=== PATIENT | female | born 1975 | race American Indian/Alaskan Native ===

== ENCOUNTER 2017-01-07 15:18 | Emergency (ER) ==
[2017-01-07 15:25] VITALS: BP 164/103; TEMP 98.8; BMI 15.5
--- NOTE | 2017-01-07 15:36 | ED.PDOC ---
General ED Provider: Dr. ANNY MILLIGAN JR Chief Complaint: Tooth Problem Stated Complaint: tooth pain top, back, left side new problem dental issues in the past jaw is throbbing[End]3-4 days 98.8 91 20 99% 164/103 11/11 juan is svisiting her local sister, patient lives in [place] Time Seen by Physician: 15:34 Mode of Arrival: Walk-In Information Source: Patient Nursing and Triage Documentation Reviewed and Agree: No EENT Complaint Exam - Dental/Oral Complaint/Exam Mechanism of Injury: No known trauma Symptoms Are: Still present Timing: Constant Initial Severity: Moderate Current Severity: Moderate Character: Reports: Sharp Aggravating: Reports: Heat, Cold, Chewing Alleviating: Reports: None Associated Signs and Symptoms: Reports: Swelling, Discharge, Foul taste in mouth Related History: Reports: Similar episode, Previous tooth problem Dental/Oral Surgical History: Reports: Third Molar Extractions Tooth Findings: Present: Percussion tenderness, Gross decay Cervical Lymphadenopathy Present: No Teeth Picture: 1 - lone tender tooth Review of Systems - Review Of Systems Constitutional: Reports: No symptoms Eyes: Reports: No symptoms Ears, Nose, Mouth, Throat: Reports: Mouth pain Respiratory: Reports: No symptoms Cardiac: Reports: No symptoms GI: Reports: No symptoms : Reports: No symptoms Musculoskeletal: Reports: No symptoms Skin: Reports: No symptoms Neurological: Reports: No symptoms Endocrine: Reports: No symptoms Hematologic/Lymphatic: Reports: No symptoms All Other Systems: Other Past Medical History - Past Medical History Previously Healthy: Yes Endocrine: Reports: None Cardiovascular: Reports: None Respiratory: Reports: None Hematological: Reports: None Gastrointestinal: Reports: PUD (perforation) Genitourinary: Reports: None Neuro/Psych: Reports: Seizure, Depression, Bipolar Disorder Musculoskeletal: Reports: Back Pain Cancer: Reports: None Last Menstrual Period: 12/29/16 - Surgical History General Surgical History: Reports: Other (perforated ulcer) - Family History Family History: Reports: Unknown - Social History Smoking Status: Current some day smoker Hx Substance Use: No Alcohol Screening: None - Immunizations Tetanus Shot up to Date: Yes Physical Exam - Physical Exam Appearance: Well-appearing, Thin Pain Distress: Moderate Eyes: TAL ENT: Erythema Neck: Supple Respiratory: Airway patent Psychiatric: Affect appropriate Critical Care Note - Critical Care Note Total Time (mins): 0 Course - Course Vital Signs: Temp Pulse Resp BP Pulse Ox 01/07/17 15:18 98.8 F 91 H 20 164/103 H 99 Departure - Departure Time of Disposition: 16:07 Disposition: HOME SELF-CARE Discharge Problem: Toothache Instructions: Toothache (ED) Condition: Good Pt referred to PMD for follow-up: Yes Additional Instructions: antibiotics until gone follow up with dentist as soon as possible doxycycline combined with metronidazole for dental infection with penicillin allergy and clindamycin intolerance recommend Naprosyn for pain may use Ultram if pain not controlled - no refills Prescriptions: Hydrocodone Bit/Acetaminophen [[place] 5-325] 1 - 2 tab PO Q6HR PRN #12 tablet PRN Reason: pain Naproxen [Naprosyn] 500 mg PO Q12HR PRN #30 tablet PRN Reason: PAIN Doxycycline Monohydrate [Monodox] 100 mg PO BID #20 capsule Metronidazole [Flagyl] 500 mg PO TID #21 tablet Allergies/Adverse Reactions: Allergies Penicillins Adverse Reaction (Verified 01/07/17 15:27) prochlorperazine [From Compazine] Adverse Reaction (Verified 01/07/17 15:27) Home Medications: Ambulatory Orders Divalproex Sodium [Depakote] 250 mg PO BID 01/07/17 Doxycycline Monohydrate [Monodox] 100 mg PO BID #20 capsule 01/07/17 Gabapentin 600 mg PO TID 01/07/17 Hydrocodone Bit/Acetaminophen [[place] 5-325] 1 - 2 tab PO Q6HR PRN #12 tablet 11/18 [place] Carbonate 150 mg PO DAILY 01/07/17 Metronidazole [Flagyl] 500 mg PO TID #21 tablet 01/07/17 Naproxen [Naprosyn] 500 mg PO Q12HR PRN #30 tablet 01/07/17
[2017-01-07] MEDS ORDERED: ANTIVERT PO STA (15:37)
[2017-01-07] MEDS: ULTRAM PO STA (16:06)
== END 2017-01-07 16:16 | disposition home or self-care (01) ==
LOC: ED 15:18
DX: K08.89 Other specified disorders of teeth and supporting structures (principal); K02.7 Dental root caries; F17.210 Nicotine dependence, cigarettes, uncomplicated
CPT/HCPCS: 99282

== ENCOUNTER 2022-01-24 16:56 | Observation (INO) ==
[2022-01-24] MEDS ORDERED: TYLENOL PO STA (19:24)
--- NOTE | 2022-01-24 19:33 | ED.PDOC ---
General ED Provider: Dr. CHELSEA AMAYA Chief Complaint: Extremity Pain/Injury Stated Complaint: Patient comes to the ER with complaints of one week history of Bilateral lower extremity swelling and now pain. Time Seen by Provider: 01/24/22 19:25 Mode of Arrival: Walk-In Information Source: Patient Primary Care Provider: ANGEL CORDERO PA-C Nursing and Triage Documentation Reviewed and Agree: Yes Does patient meet sepsis criteria?: No System Inflammatory Response Syndrome: Not Applicable Sepsis Protocol: For patient's 13 years and over: Temp is 96.8 and below OR 101 and greater Pulse >90 BPM Resp >20/minute Acutely Altered Mental Status Are patient's symptoms suggestive of a new infection, such as: -Pneumonia -Skin, Soft Tissue -Endocarditis -UTI -Bone, Joint Infection -Implantable Device -Acute Abdominal Infection -Wound Infection -Meningitis -Blood Stream Catheter Infection -Unknown Review of Systems Review Of Systems Constitutional: Reports No symptoms Ears, Nose, Mouth, Throat: Reports No symptoms Respiratory: Reports No symptoms Cardiac: Reports Edema GI: Reports No symptoms Musculoskeletal: Reports Joint pain and Joint swelling Skin: Reports No symptoms Neurological: Reports Anxiety Endocrine: Reports No symptoms All Other Systems: Reviewed and Negative [facility] Medical History Anxiety and depression Chronic back pain greater than 3 months duration Esophageal foreign body Family History Other Depression Suicide Social History Smokeless tobacco user: chewing tobacco Alcohol intake: never Substance use type: does not use Household members: family Housing: house Lives independently: Yes Current occupational status: unemployed Current gender identity: female Seatbelt use: always Drives intoxicated or rides with intoxicated 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 Water heater temperature set < 120 degrees: Yes Working smoke detector in home: Yes Fire extinguisher in home: Yes Surgical History H/O abdominal surgery History of appendectomy History of cholecystectomy Female Reproductive History Menstrual Hx Hysterectomy: No Hx Tubal Ligation: No Physical Exam Physical Exam Appearance: Reports Thin Ill-appearing: None Pain Distress: Moderate Eyes: Reports TAL ENT: Reports Nose normal Neck: Supple Respiratory: Reports Airway patent and Breath sounds clear Cardiovascular: Reports RRR and Pulses normal GI/: Reports Soft, Nontender and Other (mid scar noted ) Musculoskeletal: Reports Edema Skin: Reports Warm and Dry Neurological: Reports Motor intact, Alert and Oriented Psychiatric: Reports Anxious Critical Care Note Critical Care Note Total Critical Care Time (mins): 30 Course Course Hematology/Chemistry: 01/24/22 19:45 01/24/22 19:45 Orders, Labs, Meds: Lab Review 01/24/22 01/24/22 01/24/22 19:45 19:45 19:45 WBC 3.59 L RBC 2.98 L Hgb 7.5 L Hct 24.6 L MCV 82.6 MCH 25.2 L MCHC 30.5 L RDW Coeff of Kane 18.9 H Plt Count 172 Immature Gran % (Auto) 0.3 Neut % (Auto) 52.8 Lymph % (Auto) 26.5 Stearns % (Auto) 16.2 H Eos % (Auto) 3.6 Baso % (Auto) 0.6 Neut # (Auto) 1.9 L Lymph # (Auto) 1.0 Stearns # (Auto) 0.6 Eos # (Auto) 0.1 Baso # (Auto) 0.0 Immature Gran # (Auto) 0.0 Sodium 140.0 Potassium 2.91 L Chloride 107.2 H Carbon Dioxide 23.7 Anion Gap 12.01 BUN 2.6 L Creatinine 0.46 L Estimated GFR (MDRD) 147.00 BUN/Creatinine Ratio 5.65 Glucose 104.2 Calcium 8.06 L Iron TIBC % Saturation Total Bilirubin 0.27 AST 29.7 ALT 23.2 Alkaline Phosphatase 182.2 H Total Protein 7.10 Albumin 3.37 L Globulin 3.73 Albumin/Globulin Ratio 0.90 D-Dimer 1241.69 H SARS CoV-2 RNA Rapid REAGAN 01/24/22 01/24/22 19:45 21:00 WBC RBC Hgb Hct MCV MCH MCHC RDW Coeff of [place] Plt Count Immature Gran % (Auto) Neut % (Auto) Lymph % (Auto) Stearns % (Auto) Eos % (Auto) Baso % (Auto) Neut # (Auto) Lymph # (Auto) Stearns # (Auto) Eos # (Auto) Baso # (Auto) Immature Gran # (Auto) Sodium Potassium Chloride Carbon Dioxide Anion Gap BUN Creatinine Estimated GFR (MDRD) BUN/Creatinine Ratio Glucose Calcium Iron 26.0 L TIBC 419 % Saturation 6 Total Bilirubin AST ALT Alkaline Phosphatase Total Protein Albumin Globulin Albumin/Globulin Ratio D-Dimer SARS CoV-2 RNA Rapid REAGAN Negative Orders Category Date Time Status PLACE PATIENT OBSERVATION .TO MEDSURG (MONITORED BED ADMISSION 01/24/22 22:15 Active ) INTAKE & OUTPUT Q8HR CARE 01/24/22 22:15 Active TELEMETRY MONITORING TELE CARE 01/24/22 22:15 Active VITAL SIGNS Q4HR CARE 01/24/22 22:16 Active VTE PREVENTION .LISA On AM/Off PM CARE 01/24/22 22:15 Active REGULAR DIET DIETARY 01/24/22 Breakfast Ordered CBC W/ AUTO DIFF DAILY@0600 LAB 01/25/22 06:00 Ordered CBC W/ AUTO DIFF DAILY@0600 LAB 01/26/22 06:00 Ordered CBC W/ AUTO DIFF Stat LAB 01/24/22 19:45 Completed CMP [COMPREHENSIVE METABOLIC PANEL] Stat LAB 01/24/22 19:45 Completed COMPREHENSIVE METABOLIC PANEL DAILY@0600 LAB 01/25/22 06:00 Ordered COMPREHENSIVE METABOLIC PANEL DAILY@0600 LAB 01/26/22 06:00 Ordered D-DIMER Stat LAB 01/24/22 19:45 Completed FERRITIN Stat LAB 01/24/22 19:45 Received IRON AND TIBC Stat LAB 01/24/22 19:45 Completed SARS COV-2 RNA RAPID REAGAN Stat LAB 01/24/22 21:00 Completed Acetaminophen [Tylenol] MEDS 01/24/22 19:24 Discontinued 1,000 mg PO ONCE STA Acetaminophen [Tylenol] MEDS 01/24/22 22:15 Active 650 mg PO Q4H PRN Butorphanol Tartrate [Stadol] MEDS 01/24/22 22:11 Discontinued 1 mg IVP ONCE ONE Furosemide [Lasix] MEDS 01/24/22 22:30 Active 20 mg IVP QDAC Metoclopramide HCl [Reglan] MEDS 01/24/22 22:30 Active 5 mg IVP Q6H Morphine Sulfate [Morphine 2 mg/ml Syringe] MEDS 01/24/22 22:19 Active 2 mg IVP Q6H PRN Nicotine 21 mg [Nicoderm 21 mg] MEDS 01/24/22 23:00 Active 1 patch TD DAILY Potassium Chloride [Potassium Chl 10% Oral Chanell] MEDS 01/24/22 20:26 Discontinued 40 meq PO ONCE STA Potassium Chloride [Potassium Chl 10% Oral Chanell] MEDS 01/24/22 22:32 Discontinued 40 meq PO ONCE STA Potassium Chloride in 0.9%NaCl [Sodium Chloride 0.9%- MEDS 01/24/22 22:30 Active KCl 20 Meq] 1,000 ml IV 70 mls/hr RESUSCITATION STATUS Routine OTHERS 01/24/22 22:15 Ordered U/S VENOUS SCAN INES LEGS Routine RADS 01/25/22 08:00 Ordered Medications Generic Name Dose Route Start Last Admin Trade Name Chapin PRN Reason Stop Dose Admin Acetaminophen 650 mg 01/24/22 22:15 Acetaminophen 325 Mg Tablet PO Q4H PRN Fever and Mild Pain Furosemide 20 mg 01/24/22 22:30 Furosemide Inj 20 Mg/2 Ml Vial IVP QDAC EFREN Potassium Chloride/Sodium Chloride 1,000 mls @ 70 mls/hr 01/24/22 22:30 01/24/22 22:29 Sodium Chloride 0.9%-Kcl 20 Meq IV 70 mls/hr .[id number] EFREN Administration Metoclopramide HCl 5 mg 01/24/22 22:30 Metoclopramide Hcl 10 Mg/2 Ml IVP Q6H EFREN Morphine Sulfate 2 mg 01/24/22 22:19 Morphine Sulfate 2 Mg/Ml Syringe IVP Q6H PRN severe pain Nicotine 1 patch 01/24/22 23:00 Nicotine 21 Mg Patch.Td24 TD DAILY EFREN Discontinued Medications Generic Name Dose Route Start Last Admin Trade Name Chapin PRN Reason Stop Dose Admin Acetaminophen 1,000 mg 01/24/22 19:24 01/24/22 19:30 Acetaminophen 500 Mg Tablet PO 01/24/22 19:25 1,000 mg ONCE STA Administration Butorphanol Tartrate 1 mg 01/24/22 22:11 01/24/22 22:29 Butorphanol Tartrate 2 Mg/Ml Vial IVP 01/24/22 22:12 1 mg ONCE ONE Administration Potassium Chloride 40 meq 01/24/22 20:26 01/24/22 20:35 Potassium Chloride 40 Meq/30 Ml Cup PO 01/24/22 20:27 40 meq ONCE STA Administration Potassium Chloride 40 meq 01/24/22 22:32 Potassium Chloride 40 Meq/30 Ml Cup PO 01/24/22 22:33 ONCE STA Vital Signs: Temp Pulse Resp BP Pulse Ox 01/24/22 20:16 103 H 20 165/107 H 99 01/24/22 16:57 98.9 F 112 H 16 183/102 H 98 Discharge Plan Discharge Patient Disposition: PLACED OBSERVATION Discharge Problem: Hypokalemia, Anemia, Bilateral edema of lower extremity Did you review [place] [employer] TELEVISION TECHNICAL DIRECTOR?: Not Applicable ED Provider: LUCIA MILLER Condition: Stable Physician Progress Note: []
[2022-01-24 19:53] LABS: BASOPHILS % (AUTO) 0.6 % (0.0-3.0); EOSINOPHILS # (AUTO) 0.1 K/ul (0.0-0.7); EOSINOPHILS % (AUTO) 3.6 % (0.0-7.0); HEMATOCRIT 24.6 % (37.0-47.0); HEMOGLOBIN 7.5 g/dl (12.0-16.0); IMMATURE GRANULOCYTE % (AUTO) 0.3 % (0.0-5.0); LYMPHOCYTES % (AUTO) 26.5 (10.0-50.0); MEAN CORPUSCULAR HEMOGLOBIN 25.2 pg (27.0-31.0); MEAN CORPUSCULAR HGB CONC 30.5 (31.8-35.4); MEAN CORPUSCULAR VOLUME 82.6 fl (81.0-99.0); MONOCYTES # (AUTO) 0.6 K/uL (0.4-2.0); MONOCYTES % (AUTO) 16.2 (0-10); NEUTROPHILS # (AUTO) 1.9 K/ul (2.0-6.9); NEUTROPHILS % (AUTO) 52.8 % (42.2-75.2); PLATELET COUNT 172 10^3/uL (140-440); RDW COEFFICIENT OF VARIATION 18.9 % (11.6-14.8); RED BLOOD COUNT 2.98 10^6/ul (4.20-5.40); WHITE BLOOD COUNT 3.59 K/ul (4.6-10.2)
[2022-01-24 20:04] LABS: ALANINE AMINOTRANSFERASE 23.2 U/L (0-35); ALBUMIN 3.37 g/dL (3.5-5.0); ALKALINE PHOSPHATASE 182.2 U/L (38-126); ASPARTATE AMINO TRANSFERASE 29.7 U/L (14-36); BILIRUBIN,TOTAL 0.27 mg/dL (0.2-1.3); BLOOD UREA NITROGEN 2.6 mg/dL (7-17); CALCIUM 8.06 mg/dL (8.4-10.2); CARBON DIOXIDE 23.7 mmol/L (22-30.0); CHLORIDE 107.2 mmol/L (98-107); CREATININE 0.46 mg/dL (0.60-1.30); GLUCOSE 104.2 mg/dL (74-106); POTASSIUM 2.91 mmol/L (3.5-5.1); TOTAL PROTEIN 7.1 g/dL (6.3-8.2)
[2022-01-24] MEDS ORDERED: K-DUR PO ONE (20:11)
[2022-01-24] MEDS ORDERED: POTASSIUM CHL 10% ORAL SOL PO STA ×2 (20:26→22:32)
[2022-01-24] MEDS ORDERED: STADOL IVP ONE (22:11)
[2022-01-24] MEDS ORDERED: LASIX IVP SCH (22:30)
[2022-01-24] MEDS ORDERED: SODIUM CHLORIDE 0.9%-KCL 20 MEQ 1,000 ML IV SCH (22:30)
[2022-01-24] MEDS: NICODERM 21 MG TD SCH (23:37)
[2022-01-24] MEDS: MORPHINE 2 MG/ML SYRINGE IVP PRN (23:48)
[2022-01-25] MEDS ORDERED: NON-FORMULARY MEDICATION (Gabapentin 400 mg capsule) PO SCH (00:15)
[2022-01-25] MEDS ORDERED: NEURONTIN PO SCH (00:30)
[2022-01-25] MEDS: TRILEPTAL PO SCH ×3 (00:42→20:39)
[2022-01-25] MEDS: BUSPAR PO SCH ×4 (00:42→20:39)
[2022-01-25] MEDS: COZAAR PO SCH ×2 (00:43→09:23)
[2022-01-25] MEDS: EFFEXOR XR PO SCH ×2 (00:48→09:22)
[2022-01-25] MEDS: ADVAIR 250-50 DISKUS IH SCH ×3 (00:54→20:40)
[2022-01-25] MEDS: DESYREL PO SCH ×2 (00:55→20:40)
[2022-01-25 00:58] VITALS: BMI 19.5
[2022-01-25] MEDS ORDERED: NEURONTIN PO ONE (01:41)
[2022-01-25] MEDS: REGLAN IVP SCH ×5 (02:09→21:32)
[2022-01-25 05:10] LABS: BASOPHILS % (AUTO) 0.3 % (0.0-3.0); EOSINOPHILS # (AUTO) 0.2 K/ul (0.0-0.7); EOSINOPHILS % (AUTO) 5.6 % (0.0-7.0); HEMOGLOBIN 7.5 g/dl (12.0-16.0); IMMATURE GRANULOCYTE % (AUTO) 0.3 % (0.0-5.0); LYMPHOCYTES % (AUTO) 35.5 (10.0-50.0); MEAN CORPUSCULAR HEMOGLOBIN 25.3 pg (27.0-31.0); MEAN CORPUSCULAR VOLUME 84.2 fl (81.0-99.0); MONOCYTES # (AUTO) 0.6 K/uL (0.4-2.0); MONOCYTES % (AUTO) 19.9 (0-10); NEUTROPHILS # (AUTO) 1.1 K/ul (2.0-6.9); NEUTROPHILS % (AUTO) 38.4 % (42.2-75.2); PLATELET COUNT 182 10^3/uL (140-440); RDW COEFFICIENT OF VARIATION 19.2 % (11.6-14.8); RED BLOOD COUNT 2.97 10^6/ul (4.20-5.40); WHITE BLOOD COUNT 2.87 K/ul (4.6-10.2)
[2022-01-25 05:22] LABS: ALANINE AMINOTRANSFERASE 20.4 U/L (0-35); ALBUMIN 3.01 g/dL (3.5-5.0); ALKALINE PHOSPHATASE 170.8 U/L (38-126); ASPARTATE AMINO TRANSFERASE 20.1 U/L (14-36); BILIRUBIN,TOTAL 0.28 mg/dL (0.2-1.3); BLOOD UREA NITROGEN 3.8 mg/dL (7-17); CALCIUM 7.78 mg/dL (8.4-10.2); CARBON DIOXIDE 25.3 mmol/L (22-30.0); CHLORIDE 112.1 mmol/L (98-107); CREATININE 0.42 mg/dL (0.60-1.30); GLUCOSE 111.3 mg/dL (74-106); POTASSIUM 4.03 mmol/L (3.5-5.1); SODIUM 141.9 mmol/L (134.5-145); TOTAL PROTEIN 6.61 g/dL (6.3-8.2)
[2022-01-25] MEDS: SYNTHROID PO SCH (05:43)
[2022-01-25] MEDS: PROTONIX PO SCH ×2 (05:43→17:09)
[2022-01-25] MEDS: MORPHINE 2 MG/ML SYRINGE IVP PRN (05:48)
[2022-01-25] MEDS ORDERED: LASIX IVP SCH (06:30)
[2022-01-25] MEDS: TYLENOL PO PRN ×2 (07:59→12:39)
[2022-01-25] MEDS ORDERED: NORCO 5-325 PO PRN (08:35)
[2022-01-25] MEDS: NICODERM 21 MG TD SCH (09:19)
[2022-01-25] MEDS: NEURONTIN PO SCH ×8 (09:22→20:40)
--- NOTE | 2022-01-25 09:23 | PCM.PROG ---
Date Seen by Provider: 01/25/22 Time Seen by Provider: 08:15 Subjective: Patient complains of bilateral lower extremity swelling and pain. She reports having this for one week. No other complaints. Objective: Vitals: T=98.0 F, P=111, R=20, QM=608/89, SPO2=99 Patient alert and very talkative. Seems to be in good spirits. Has insight into swallowing objects;"I'm never going to swallow anything again." Patient recently had a laparotomy for this reason. HEENT: [] Neck: [] Lungs: [] Clear and BS equal. CVS: [] RRR. No gallop. Abdomen: [] Extremities: [] Pitting edema both legs to the lower thighs. Nontender. No erythema. Neurological: [] Skin: [] Lab/Tests/Diagnostic Imaging: [] (1) Bilateral edema of lower extremity: Status: Acute Code(s): R60.0 - Localized edema SNOMED Code(s): 407549187 Assessment: Bilateral lower extremity edema persists. Patient already receiving lasix;may need this increased. (2) Anemia: Status: Acute Code(s): D64.9 - Anemia, unspecified SNOMED Code(s): 952136813 Assessment: Patient iron deficient. Hgb 7.5 and Fe 26 (3) Hypokalemia: Status: Acute Code(s): E87.6 - Hypokalemia SNOMED Code(s): 68987049 Assessment: Potassium 4.0 today (4) Bilateral lower extremity pain: Status: Acute Code(s): M79.604 - Pain in right leg; M79.605 - Pain in left leg SNOMED Code(s): 51042746 Assessment: Pain most likely related to edema. Patient to have bilateral lower extremity doppler study today. Will also check an echocardiogram and ask Dr Ramirez to see her. Plan: DC morphine and add norco 5/325. Dr Ramirez to see for cardiac evaluation;patient with bilateral lower extremity swelling. Echocardiogram today as well as bilateral lower extremity doppler to rule out DVT; D dimer was elevated on admission. DC telemetry and hold further potassium for now. Add iron supplement.
[2022-01-25] MEDS ORDERED: CATAPRES PO STA (11:04)
[2022-01-25] MEDS ORDERED: LASIX IVP ONE (11:04)
[2022-01-25] MEDS: FERROUS SULFATE PO SCH ×2 (11:51→17:09)
[2022-01-25] MEDS: NORCO 5-325 PO PRN ×3 (13:12→21:33)
--- NOTE | 2022-01-25 14:39 | US ---
EXAM: Bilateral lower extremity venous Doppler 01/25/2022 HISTORY: Lower extremity been COMPARISON: None FINDINGS: Duplex ultrasound including chavez scale, color and spectral Doppler has been performed. Fl ow, compression and augmentation is present within the right and left common femoral, greater sapheno us, profunda femoral, femoral, popliteal and trifurcation veins. IMPRESSION: No evidence of right or left lower extremity deep vein thrombosis.
[2022-01-26] MEDS: TYLENOL PO PRN ×2 (04:33→16:06)
[2022-01-26] MEDS: REGLAN IVP SCH ×4 (04:33→22:46)
[2022-01-26] MEDS: NORCO 5-325 PO PRN ×5 (04:41→23:00)
[2022-01-26 05:19] LABS: BASOPHILS % (AUTO) 0.6 % (0.0-3.0); EOSINOPHILS # (AUTO) 0.2 K/ul (0.0-0.7); HEMATOCRIT 26.3 % (37.0-47.0); HEMOGLOBIN 7.9 g/dl (12.0-16.0); IMMATURE GRANULOCYTE % (AUTO) 0.3 % (0.0-5.0); LYMPHOCYTES # (AUTO) 1.3 K/uL (0.60-3.4); LYMPHOCYTES % (AUTO) 38.7 (10.0-50.0); MEAN CORPUSCULAR HEMOGLOBIN 24.8 pg (27.0-31.0); MEAN CORPUSCULAR VOLUME 82.7 fl (81.0-99.0); MONOCYTES # (AUTO) 0.6 K/uL (0.4-2.0); MONOCYTES % (AUTO) 16.4 (0-10); NEUTROPHILS # (AUTO) 1.3 K/ul (2.0-6.9); PLATELET COUNT 190 10^3/uL (140-440); RDW COEFFICIENT OF VARIATION 18.9 % (11.6-14.8); RED BLOOD COUNT 3.18 10^6/ul (4.20-5.40); WHITE BLOOD COUNT 3.41 K/ul (4.6-10.2)
[2022-01-26 05:41] LABS: ALBUMIN 3.3 g/dL (3.5-5.0); ALKALINE PHOSPHATASE 173.2 U/L (38-126); ASPARTATE AMINO TRANSFERASE 21.5 U/L (14-36); BILIRUBIN,TOTAL 0.29 mg/dL (0.2-1.3); CALCIUM 7.24 mg/dL (8.4-10.2); CARBON DIOXIDE 26.9 mmol/L (22-30.0); CHLORIDE 98.6 mmol/L (98-107); CREATININE 0.43 mg/dL (0.60-1.30); GLUCOSE 106.6 mg/dL (74-106); POTASSIUM 3.78 mmol/L (3.5-5.1); SODIUM 131.4 mmol/L (134.5-145); TOTAL PROTEIN 7.03 g/dL (6.3-8.2)
[2022-01-26] MEDS: FERROUS SULFATE PO SCH ×3 (05:43→16:12)
[2022-01-26] MEDS: SYNTHROID PO SCH ×2 (05:44→08:56)
[2022-01-26] MEDS: LASIX IVP SCH (05:44)
[2022-01-26] MEDS: PROTONIX PO SCH ×2 (05:44→16:06)
[2022-01-26] MEDS: TRILEPTAL PO SCH ×2 (08:58→22:03)
[2022-01-26] MEDS: BUSPAR PO SCH ×3 (08:58→20:54)
[2022-01-26] MEDS: NEURONTIN PO SCH ×8 (08:58→22:03)
[2022-01-26] MEDS: EFFEXOR XR PO SCH (08:58)
[2022-01-26] MEDS: COZAAR PO SCH (08:58)
[2022-01-26] MEDS: NICODERM 21 MG TD SCH (08:58)
[2022-01-26] MEDS: ADVAIR 250-50 DISKUS IH SCH ×2 (09:04→20:55)
[2022-01-26] MEDS ORDERED: PHENERGAN TAB PO ONE (13:12)
--- NOTE | 2022-01-26 13:17 | ECHO2D ---
Date of Exam: 01/25/2022 Ordering Physician: HOSPITALIST/ [facility] Room #: 110 Reason for Echo: LEG SWELLING, SOB M-Mode Normal Adult Results LV Dimensions Normal Adult Results AoV Opening excursions >1.6 >1.6 LVEDD-base- 3.5-5.8 3.8 Ao root dimensions 2.0-3.7 3.3 LVESD-base- 3.1-4.6 L. Atrium dimensions 1.9-3.8 3.9 Post. Wall thickness 0.8-1.1 1.1 IV septum (thickness) 0.7-1.2 1.1 Post. Wall excursion 0.72-1.3 NORMAL Septal motion 0.8 Systolic motion R. Ventricular cavity 1.5-2.0 4.0 LVEF 60% 50-55% Paradoxical septal wall motion NORMAL 2-D : ENLARGED RIGHT VENTRICLE CAVITY--HYPOCINETIC SEPTUM, MITRAL VALVE PROLAPSE NOTED, LEFT PARASTERNAL LONG AXIS AND APICAL FOUR CHAMBER VIEW--NORMAL VALVES--NO EFFUSION, NO THROMBUS M-MODE: MV: NORMAL AV: NORMAL TV: NORMAL PV: CHAMBER SIZE: ENLARGED RIGHT VENTRICLE CAVITY WALL MOTION: HYPOKINETIC SEPTAL WALL PERICARDIUM: NORMAL INTERPRETATION: 1. HYPOKINETIC SEPTAL WALL --EJECTION FRACTION 50 TO 55% 2. ENLARGED RIGHT VENTRICLE CAVITY 3. LEFT VENTRICLE SIZE--NORMAL 4. MITRAL VALVE PROLAPSE LATE SYSTOLIC MTDD
--- NOTE | 2022-01-26 17:01 | PCM.PROG ---
Date Seen by Provider: 01/26/22 Time Seen by Provider: 16:57 Subjective: pt still nauseated, better w/ phenergan, anemia stable since admission, no emesis today, improved leg edema, hx recent abdominal surgery for foreign body Objective: Vitals: T=97.1 F, P=90, R=14, SA=838/95, SPO2=99 HEENT: []conjunctiva clear Neck: []supple Lungs: [] no respiratory distress CVS: []RRR Abdomen: []nondistended Extremities: []trace edema Neurological: []alert Skin: []pink Lab/Tests/Diagnostic Imaging: [] heart echo showed enlarged RV, MVP and LVEF 55%, Hb 7.9, K+3.7 (1) Bilateral edema of lower extremity: Status: Acute Code(s): R60.0 - Localized edema SNOMED Code(s): 459282079 (2) Anemia: Status: Acute Code(s): D64.9 - Anemia, unspecified SNOMED Code(s): 271618300 (3) Hypokalemia: Status: Acute Code(s): E87.6 - Hypokalemia SNOMED Code(s): 97335293 (4) Bilateral lower extremity pain: Status: Acute Code(s): M79.604 - Pain in right leg; M79.605 - Pain in left leg SNOMED Code(s): 25330737 Plan: pt hx of pica, obtain kub discharge home in am care to Dr Leslie at 19:00
--- NOTE | 2022-01-26 20:25 | DI ---
EXAM: Frontal view of the abdomen. HISTORY: Abdominal pain. COMPARISON: Radiographs 11/24/2021. FINDINGS: Surgical suture line in the left upper quadrant. Bowel does not appear obstructed. Moderate colonic s tool burden. Levoconvex lumbar scoliosis. Multilevel spondylosis. No acute osseous finding. IMPRESSION: No acute abnormality.
[2022-01-26] MEDS: DESYREL PO SCH (22:02)
[2022-01-27] MEDS: REGLAN IVP SCH (04:59)
[2022-01-27 05:26] VITALS: BP 136/80; TEMP 97.5
[2022-01-27 05:42] LABS: BASOPHILS % (AUTO) 0.8 % (0.0-3.0); EOSINOPHILS # (AUTO) 0.2 K/ul (0.0-0.7); EOSINOPHILS % (AUTO) 5.1 % (0.0-7.0); HEMATOCRIT 26.7 % (37.0-47.0); HEMOGLOBIN 8.2 g/dl (12.0-16.0); IMMATURE GRANULOCYTE % (AUTO) 0.3 % (0.0-5.0); LYMPHOCYTES # (AUTO) 1.3 K/uL (0.60-3.4); LYMPHOCYTES % (AUTO) 37.3 (10.0-50.0); MEAN CORPUSCULAR HEMOGLOBIN 24.6 pg (27.0-31.0); MEAN CORPUSCULAR HGB CONC 30.7 (31.8-35.4); MEAN CORPUSCULAR VOLUME 80.2 fl (81.0-99.0); MONOCYTES # (AUTO) 0.5 K/uL (0.4-2.0); MONOCYTES % (AUTO) 14.1 (0-10); NEUTROPHILS # (AUTO) 1.5 K/ul (2.0-6.9); NEUTROPHILS % (AUTO) 42.4 % (42.2-75.2); PLATELET COUNT 190 10^3/uL (140-440); RDW COEFFICIENT OF VARIATION 18.2 % (11.6-14.8); RED BLOOD COUNT 3.33 10^6/ul (4.20-5.40); WHITE BLOOD COUNT 3.54 K/ul (4.6-10.2)
[2022-01-27] MEDS: PROTONIX PO SCH (05:43)
[2022-01-27] MEDS: LASIX IVP SCH (05:43)
[2022-01-27] MEDS: FERROUS SULFATE PO SCH (05:43)
[2022-01-27] MEDS: NORCO 5-325 PO PRN (05:51)
[2022-01-27 05:52] LABS: ALANINE AMINOTRANSFERASE 16.6 U/L (0-35); ALBUMIN 3.26 g/dL (3.5-5.0); ALKALINE PHOSPHATASE 176.4 U/L (38-126); ASPARTATE AMINO TRANSFERASE 26.9 U/L (14-36); BILIRUBIN,TOTAL 0.37 mg/dL (0.2-1.3); CALCIUM 8.04 mg/dL (8.4-10.2); CARBON DIOXIDE 24.1 mmol/L (22-30.0); CREATININE 0.43 mg/dL (0.60-1.30); GLUCOSE 98.3 mg/dL (74-106); POTASSIUM 4.27 mmol/L (3.5-5.1); SODIUM 127.7 mmol/L (134.5-145); TOTAL PROTEIN 7.07 g/dL (6.3-8.2)
--- NOTE | 2022-01-27 09:47 | PCM.PROG ---
Date Seen by Provider: 01/27/22 Time Seen by Provider: 08:45 Subjective: Patient has no complaints. Peripheral edema has resolved. Minimal leg discomfort. Objective: Vitals: T=97.5 F, P=89, R=19, GM=208/80, JFU0=106 Patient alert and in NAD. She is in good spirits and asking to go home. HEENT: [] Neck: [] Lungs: [] Clear. BS equal. CVS: []RRR. No peripheral edema. Abdomen: [] Extremities: [] Neurological: [] Skin: [] Lab/Tests/Diagnostic Imaging: [] (1) Bilateral edema of lower extremity: Status: Acute Code(s): R60.0 - Localized edema SNOMED Code(s): 191269880 Assessment: resolved;echocardiogram with EF of 50-55% and no evidence of DVT on venous doppler exam (2) Anemia: Status: Acute Code(s): D64.9 - Anemia, unspecified SNOMED Code(s): 112474181 Assessment: Hgb stable (3) Hypokalemia: Status: Acute Code(s): E87.6 - Hypokalemia SNOMED Code(s): 51769294 Assessment: Potassium repleted (4) Bilateral lower extremity pain: Status: Acute Code(s): M79.604 - Pain in right leg; M79.605 - Pain in left leg SNOMED Code(s): 24146677 Assessment: Pain resolved with improvement of edema. Plan: Patient will be discharged to home.
--- NOTE | 2022-01-27 09:50 | PCM.DC ---
Final Diagnosis: bilateral lower extremity edema bilateral lower extremity pain hypokalemia anemia Physical Exam Appearance: Well-appearing, No pain distress, Well-nourished and Other (Patient in good spirits and asking to go home. She is ambulating without difficulty.) Ill-appearing: None Pain Distress: None Eyes: Not Examined Neck: Not Examined Respiratory: Airway patent, Breath sounds clear and Breath sounds equal Cardiovascular: RRR, No rub and No murmur GI/: Soft, Nontender, No masses and Bowel sounds normal Musculoskeletal: Normal strength, ROM intact and No edema Skin: Warm, Dry and Normal color Neurological: Motor intact, Alert and Oriented Psychiatric: Affect appropriate and Mood appropriate (1) Bilateral edema of lower extremity: Status: Acute Code(s): R60.0 - Localized edema SNOMED Code(s): 674624913 (2) Anemia: Status: Acute Code(s): D64.9 - Anemia, unspecified SNOMED Code(s): 165132817 (3) Hypokalemia: Status: Acute Code(s): E87.6 - Hypokalemia SNOMED Code(s): 83208693 (4) Bilateral lower extremity pain: Status: Acute Code(s): M79.604 - Pain in right leg; M79.605 - Pain in left leg SNOMED Code(s): 24912273 Reason for Hospitalization: Patient admitted with bilateral lower extremity edema and pain. She also had a potassium of 2.9 Prognosis/Condition at Discharge: Condition at discharge was good. Medications at Discharge: Patient discharged on the same medications that she was taking when admitted. Lab/Diagnostics: Echocardiogram with EF of 50-55%. Venous doppler lower extremities with no DVT. Follow-ups: Follow up with primary care provider within one week. Discharge Disposition: Home Hospital Course: Patient received lasix IVP for her edema and it resolved. Her leg pain improved as the peripheral edema resolved. Low potassium was repleted. Plan: Patient discharged to home.
--- NOTE | 2022-01-27 14:23 | CONS ---
DATE OF SERVICE: 01/25/22 SUBJECTIVE: She was admitted on 01/24/[address] Leslie did ask for consultation for me to see her on 01/25/22. I declined to see the patient on consultation because of the patient being noncompliant on all aspects of medical care. I did echo on her which was ordered. I informed the nurse in charge of the patient, TIMOTHY Costello and also I called Dr. Kaiser informed that I am not going to be seeing the patient on consult. Echo report was given to Dr. Kaiser through cardiopulmonary department. TRACY
[2022-01-28] MEDS ORDERED: NEURONTIN PO SCH ×2 (09:00)
[2022-01-31] MEDS ORDERED: NEURONTIN PO SCH ×2 (09:00)
== END 2022-01-27 09:36 | disposition home or self-care (01) ==
LOC: MEDSURG A 16:56 → ED 16:56 → MEDSURG A 23:25
PROVIDERS: ADMIT Internal Medicine Geriatric Medicine; ATTEND Surgery
DX: Z79.899 Other long term (current) drug therapy; Z20.822 Contact with and (suspected) exposure to COVID-19; M79.604 Pain in right leg; R06.02 Shortness of breath; E87.6 Hypokalemia; D64.9 Anemia, unspecified; M79.605 Pain in left leg; R22.43 Localized swelling, mass and lump, lower limb, bilateral; Z51.81 Encounter for therapeutic drug level monitoring